=== PATIENT | male | born 1980 | race Caucasian/White ===

== ENCOUNTER → 2018-08-25 10:04 | Outpatient (CLI) | payer OTHER, SELFPAY ==
[2018-08-25 11:48] LABS: BUN 15 mg/dL (7-18); BUN/Creat Ratio 17.3 RATIO (10-20); Calcium,Total 8.8 mg/dL (8.5-10.1); Cholesterol 208 mg/dL (200); Creatinine, Serum 0.87 mg/dL (0.70-1.30); EST Glomerular Filtration Rate 105 mL/min (>60); Est Glom Filt Rate - Afr Amer 128 mL/min (>60); Glucose 95 mg/dL (74-106)
[2018-08-25 11:49] LABS: Anion Gap 5 (5-15); Chloride 104 mmol/L (98-107); High Density Lipoprotein 46 mg/dL; Sodium Level 139 mmol/L (136-145); Triglycerides 92 mg/dL; Very Low Density Lipoprotein 18 mg/dL (5-40)
== END ==
PROVIDERS: Family Provider Family Medicine; PCP Family Medicine; Referring Provider Nurse Practitioner Adult Health; Visit Provider Nurse Practitioner Adult Health
DX: Z13.1 Encounter for screening for diabetes mellitus (principal); Z13.220 Encounter for screening for lipoid disorders
CPT/HCPCS: 36415; 80048; 80061

== ENCOUNTER → 2021-03-08 16:50 | Outpatient (CLI) | payer OTHER, SELFPAY ==
--- NOTE | 2021-03-08 16:59 | RAD_ITS ---
STUDY: X-RAY - LUMBAR SPINE REASON FOR EXAM: Male, 40 years old. Lower back pain. TECHNIQUE: 5 view(s) of the lumbar spine were obtained. COMPARISON: None FINDINGS: There is reversal of the normal lumbar lordosis. There is no substantial scoliosis. There is a normal alignment of the vertebrae. Normal vertebral bodies and endplates. Normal disc space heights. There is no evidence of acute fracture or loss of vertebral axial height. There is no demonstrated spondylolysis of the pars interarticulares. The soft tissue structures are unremarkable. RAD/L/S Spine Min 4 Views IMPRESSION: Flattened lumbar lordosis without acute fracture or subluxation. Question muscular strain. Electronically Signed: Mario Mcdowell DO at 18:21 EDT Tel [phone], Service support ,
== END ==
PROVIDERS: PCP Family Medicine; Referring Provider Nurse Practitioner Family; Visit Provider Nurse Practitioner Family
DX: M54.5 Low back pain (principal)
CPT/HCPCS: 72110

== ENCOUNTER 2021-05-20 17:00 | Outpatient (RCR) | payer SELFPAY ==
--- NOTE | 2021-03-23 17:47 | HP.PTEVAL ---
Patient's Visit Information NINO ZAMORA is a 40 year old M referred to Physical Therapy by ALLIE GuerreroC with a diagnosis of chronic LBP. Date of Evaluation: 03/23/21 Physical Therapist: Dano Garcia, PETERT, OCS, CSCS - Visit Plan Frequency: 1x/Week Duration: 4-6 Weeks Plan: weekly(pt choice vs more frequent) x 4 weeks for. 1. rechec ext adn symptoms and if doing better, progress to remodelling ROM and then strength. 2. If not doing better, may need more manual for ext mobs, STM OR NS strength/LB ROM - Subjective R sided backa dn butt pain into upper HS. Its been present since october. Garage door broke last spring and hurt it lifting garage door. It felt better. Then in October was leaning over table helping kids and tweaked LB. Went to chirpractor which may have progressed it to leg. It is a daily pain but manageable. Stadning in one spot 15 minutes makes it worse. Walking not as bad. No leg symptoms other than burning in upper HS. Doesn't feel weak., maybe a little. Sleep is OK. 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 Bunny;t stand at desk anymore. Getting up is not a problem. Basic ADLs are getting done. Mulching this summer was sore for 2 days. Hobbies include golfing and this did not keep him from golfing. No regular exercises. None for back. - Pain R LB and buttock. Pain Intensity (Out of 10): 0 Pain Intensity Range: 0, 6 Comment: stadn and walk worse, better sitting. - Objective Walks normal back to PT room I, Trasnfers I. reflexes patella and achilles 2/3. Sensation LE WNL to gross light touch. Some increased lordosis in lumbar posture. Strength LE 4+/5 without myotomal problems. Tender to PA pressure mid lumbar spine. LB AROM: ext mod limited adn painful, flexion OK, SB OK. repeated ext adn manual PA increase LB ext immediately, mild pain during. - slump. - SLR - Balance/Special Test Scores Oswestry Low Back Score: 4 - Goals Goal 1:: pain 0-1/10 at worst and 90% better Goal Time Frame: 2-4 Weeks Goal 2:: I management of condtion and HEP Goal Time Frame: 2-4 Weeks Goal 3:: Stand at work desk for 30 minutes without increased pain. Goal Time Frame: 2-4 Weeks Goal 4:: 1 or better oswestry score. Goal Time Frame: 4-6 Weeks - Rehabilitation Potential Physical Therapy Diagnosis: LBP possible discal pathology Rehabilitation Potential: Fair - Anticipated Interventions Patient/Client Instruction: Educate patient on: Condition, Plan of Care For the Purpose of:: To decrease pain, To increase ROM, To improve muscle performance and motor function, To increase tolerance to activity/condition/position, To improve ability of physical actions for home/community/work/leisure Therapeutic Exercise to Include: Strength training, Postural training, Passive ROM, Active ROM, [place] Exercises For the Purpose of:: To decrease pain, To increase ROM, To improve muscle performance and motor function, To increase tolerance to activity/condition/position Manual Therapy Techniques to Include: Mobilization, Soft tissue mobilization For the Purpose of:: To increase ROM Thank you for the opportunity to evaluate your patient. For Medicare and Medicare HMO plans, please review the plan of care and approve it. It will need to be FAXED BACK to us at [phone] for Medicare purposes. For Medicare only, by signing this I certify the plan of care. Please let me know if there are questions or concerns regarding this plan of care. Physician Signature: Date:
--- NOTE | 2021-05-20 17:22 | HP.PTDCSUM ---
It has been my pleasure to treat NINO ZAMORA referred by ABDOULAYE Guerrero, with the diagnosis of chronic LBP for a total of 5 visit(s). Discharge Date: 05/20/21 Please see the following information for a summary of their discharge status. Subjective: OK, not any better pain padgett. Maybe more sore in mid back to 5/10 in evenings. Comfortable during day. Sleep is OK. Activities are normal. Stays conscious of posture and timing of sitting. No scheduled f/u with doctor. Given options, pt wants to check with doctor on next step for pain. R LB and buttock. Pain Intensity (Out of 10): 0 % Improvement: 0 Objective/Function: L/S AROM still stiff in extension with slight upper lumbar pain, worse with PA pressure. Walks well and steps normal. Overall moving slightly better but not feelling better overall. Goal 1:: pain 0-1/10 at worst and 90% better Goal Progress: Not Progressing Goal 2:: I management of condtion and HEP Goal Progress: Goal Met Goal 3:: Stand at work desk for 30 minutes without increased pain. Goal Progress: Progressing Goal 4:: 1 or better oswestry score. Goal Progress: Not Progressing Plan: Pt to schedule with doctor for next medical steps. Pt may be appropriate for manual, massage, and modalities more frequently if other options are not good for patient or if MRI further delineates problem Discharge Comments: Pt to schedule back with doctor for next appropriate medical step. If there are questions or concerns regarding this patient's physical therapy, please feel free to call me at [phone]. Thank you for the referral of this patient. Sincerely, Dano Garcia, DPT, OCS, CSCS Balance/Gait/Functional tests - Balance/Special Test Scores Oswestry Low Back Score: 5
== END 2021-05-20 19:00 | disposition home or self-care (01) ==
LOC: PT 17:00
PROVIDERS: PCP Family Medicine; Referring Provider Nurse Practitioner Family; Visit Provider Nurse Practitioner Family
DX: M54.50 Low back pain, unspecified (principal); G89.29 Other chronic pain
CPT/HCPCS: 97110; 97161; 97164

== ENCOUNTER → 2022-02-17 | Outpatient (CLI) | payer OTHER, SELFPAY ==
[2022-02-17 10:31] LABS: Anion Gap 6 (5-15); BUN 16 mg/dL (7-18); BUN/Creat Ratio 17.6 RATIO (10-20); Calcium,Total 9.1 mg/dL (8.5-10.1); Chloride 104 mmol/L (98-107); Cholesterol 222 mg/dL (200); Creatinine, Serum 0.91 mg/dL (0.70-1.30); EST Glomerular Filtration Rate 98 mL/min (>60); Est Glom Filt Rate - Afr Amer 118 mL/min (>60); Glucose 100 mg/dL (74-106); High Density Lipoprotein 49 mg/dL; Potassium 3.9 mmol/L (3.5-5.1); Sodium Level 138 mmol/L (136-145); Triglycerides 85 mg/dL; Very Low Density Lipoprotein 17 mg/dL (5-40)
== END | disposition home or self-care (01) ==
LOC: MFPLAB 08:33
PROVIDERS: PCP Family Medicine; Referring Provider Family Medicine; Visit Provider Nurse Practitioner Family
DX: Z13.220 Encounter for screening for lipoid disorders (principal); Z13.1 Encounter for screening for diabetes mellitus
CPT/HCPCS: 36415; 80048; 80061